=== PATIENT | male | born 1985 | race Hispanic/Latino ===

== ENCOUNTER 2018-07-11 11:15 | Emergency (ER) | payer OTHER, SELFPAY ==
[2018-07-11] MEDS ORDERED: Ketorolac Tromethamine 30 MG/ML VIAL ONE (11:40)
[2018-07-11] MEDS ORDERED: Dexamethasone 10 MG/ML VIAL ONE (11:40)
== END 2018-07-11 12:05 | disposition home or self-care (01) ==
LOC: MADERS 11:15
DX: S33.5XXA Sprain of ligaments of lumbar spine, initial encounter (principal); I10 Essential (primary) hypertension; X50.1XXA Overexertion from prolonged static or awkward postures, initial encounter
CPT/HCPCS: 96372; J1100; J1885

== ENCOUNTER 2021-07-03 16:06 | Emergency (ER) | payer OTHER ==
[2021-07-03] MEDS ORDERED: Mag-Al Plus 1200 MG/1200 MG/120 MG/30 ML UDCUP ONE (17:32)
[2021-07-03] MEDS ORDERED: Lidocaine Viscous Sol 2% 15 ml UD Cup ONE (17:32)
== END 2021-07-03 18:17 | disposition home or self-care (01) ==
LOC: MADERS 16:06
DX: S82.61XA Displaced fracture of lateral malleolus of right fibula, initial encounter for closed fracture (principal); I51.7 Cardiomegaly; W22.8XXA Striking against or struck by other objects, initial encounter; Y93.02 Activity, running
CPT/HCPCS: 93005

== ENCOUNTER 2024-09-21 15:16 | Emergency (ER) | payer BC, SELFPAY | END 2024-09-21 15:50 | disposition home or self-care (01) | LOC: MADERS 15:16 | DX: S86.021A Laceration of right Achilles tendon, initial encounter (principal); I10 Essential (primary) hypertension; Z79.899 Other long term (current) drug therapy; X50.1XXA Overexertion from prolonged static or awkward postures, initial encounter; Y93.K1 Activity, walking an animal | CPT/HCPCS: 99283 ==